=== PATIENT | male | born 1980 | race Caucasian/White ===

== ENCOUNTER 2020-03-22 05:56 | Emergency (ER) | payer BC, SELFPAY ==
[2020-03-22 06:00] VITALS: BP 196/99; PULSE 71; RESP 16; TEMP 37; O2SAT 97; BMI 33.5
--- NOTE | 2020-03-22 06:07 | DI.RAD.S_ITS ---
PROCEDURE: XR CHEST 1V INDICATIONS: Chest pain TECHNIQUE: One view of the chest was acquired. COMPARISON: None. FINDINGS: Surgical changes and devices: None. Lungs and pleura: Low lung volumes accentuate the interstitial markings. No focal consolidation. No pleural effusion or pneumothorax. Mediastinum: Mediastinal contours appear normal. Heart size is normal. Bones and chest wall: No suspicious bony lesions. Overlying soft tissues appear unremarkable. IMPRESSION: No acute cardiopulmonary process demonstrated radiographically. Low lung volumes. Dictated by: Ben Jung M.D. on 03/22/2020 at 7:46 Approved by: Ben Jung M.D. on 03/22/2020 at 7:47
[2020-03-22] MEDS: SODIUM CHLORIDE 0.9% 1,000 ML 1000 ML IV (06:26)
[2020-03-22] MEDS: KETOROLAC 60 MG/2 ML VIAL 15 MG IV (06:27)
[2020-03-22 06:28] VITALS: BP 150/80; PULSE 60; O2SAT 96
[2020-03-22 06:29] LABS: Add Manual Diff / Slide Review NO; Basophils Absolute Auto 100 /uL (0-100); Basophils Percent Auto 1.2 % (0-2); Eosinophils Absolute Auto 200 /uL (0-450); Eosinophils Percent Auto 2.5 % (2-4); Hematocrit 40.1 % (41-53); Lymphocytes Absolute Auto 2300 /uL (1100-4500); Lymphocytes Percent Auto 30.5 % (25-40); Mean Corpuscular HGB Conc 34.9 % (30-36); Mean Corpuscular Hemoglobin 30.2 PG (26-34); Mean Corpuscular Volume 86.6 fL (80-100); Monocytes Absolute Auto 700 /uL (0-900); Monocytes Percent Auto 8.9 % (3-14); Neutrophils Absolute Auto 4400 /uL (1500-7000); Neutrophils Percent Auto 56.9 % (50-75); Platelet Count 318 X10^3/uL (150-400); Red Blood Cell Count 4.63 X10^6/uL (4.5-5.9); Red Cell Distribution Width 13.2 % (11.6-14.8); White Blood Cell Count 7.7 X10^3/uL (4.5-11.0)
[2020-03-22 06:30] VITALS: BP 153/85; PULSE 54; O2SAT 97
[2020-03-22 06:34] LABS: Prothrombin Time 11.7 SECONDS (10.1-12.7)
--- NOTE | 2020-03-22 06:35 | ED_ITS ---
HPI - Chest Pain General Chief Complaint: Chest Pain Stated Complaint: Sharp pain on right side also pain in chest Time Seen by Provider: 03/22/20 06:01 Source: patient Mode of arrival: Ambulatory Limitations: no limitations History of Present Illness HPI narrative: 39-year-old male former smoker no significant medical history presents with a chief complaint of sharp stabbing right-sided chest pain with radiation to his back since 2:30 a.m.. He states it is worse with motion and with a deep breath. He denies associated symptoms such as dizziness, weakness or lightheadedness. He denies any cough or shortness of breath. He denies any injury or trauma. He denies any nausea, vomiting or diarrhea. He denies any history of the same. MD complaint: chest pain Onset (ago): hour(s) Duration: constant Onset: during rest Pain location: right chest Severity: moderate Quality: sharp Pain radiation: back Relieving factors: rest Exacerbating factors: inspiration Treatments prior to arrival chest pain: none Related Data Previous Rx's Medication Instructions Recorded ketorolac 10 mg PO Q6H PRN #20 tab 03/22/20 Allergies Allergy/AdvReac Type Severity Reaction Status Date / Time No Known Drug Allergies Allergy Verified 03/22/20 06:34 Review of Systems Constitutional Constitutional: Denies chills, Denies fatigue, Denies fever(s), Denies frequent falls, Denies lethargy and Denies weakness Eyes Eyes: Denies change in vision, Denies eye discharge, Denies irritation and Denies loss of vision ENT Ears, Nose, Mouth, and Throat: Denies change in voice, Denies dizziness, Denies neck pain, Denies sore throat and Denies throat swelling Cardiovascular Cardiovascular: Reports chest pain, Denies irregular heart rhythm, Denies lightheadedness, Denies palpitations, Denies dyspnea, Denies dyspnea on exertion and Denies orthopnea Respiratory Respiratory: Denies cough, Denies dyspnea, Denies dyspnea on exertion and Denies wheezing Gastrointestinal Gastrointestinal: Denies abdominal pain, Denies change in bowel habits, Denies diarrhea, Denies nausea and Denies vomiting Musculoskeletal Musculoskeletal: Denies neck pain and Denies numbness Integumentary/Breasts Skin/Breast: Denies pruritus, Denies erythema, Denies rash and Denies wounds Neurologic Neurologic: Denies behavioral changes, Denies confusion, Denies dizziness, Denies frequent falls, Denies loss of vision, Denies numbness and Denies weakness Psychiatric Psychiatric: Denies anxiety, Denies behavioral changes, Denies confusion, Denies depression, Denies homicidal ideation and Denies suicidal ideation Endocrine Endocrine: Denies fatigue, Denies flushing and Denies palpitations Hematologic/Lymphatic Hematologic/Lymphatic: Denies easy bruising Allergic/Immunologic Allergic/Immunologic: Denies urticaria, Denies throat swelling and Denies whee zing Patient History tobacco type: smokeless tobacco Substance Use Type: does not use Exam Narrative Exam Narrative: GENERAL: [39] year old patient appears stated age. Well- nourished, well-developed patient, in mild distress. Obviously in pain HEAD: Atraumatic. Normocephalic. EYES: Pupils equal round and reactive. Extraocular motions intact. No scleral icterus. No injection or drainage. ENT: Nose without bleeding, purulent drainage. Throat without erythema, tonsillar hypertrophy or exudate. Airway patent. NECK: Trachea midline. Non tender CARDIOVASCULAR: Regular rate and rhythm without murmurs, gallops, or rubs. RESPIRATORY: Clear to auscultation. Breath sounds equal bilaterally. No wheezes, rales, or rhonchi. GASTROINTESTINAL: Abdomen soft, tender in the right upper quadrant, nondistended. EXTREMITIES: No edema or joint tenderness. BACK: Nontender without deformity or crepitance. No flank tenderness. NEURO: AOx3. SKIN: No rash or erythema of visible areas Initial Vital Signs Initial Vital Signs: Vital Signs Temperature 98.6 F 03/22/20 06:00 Pulse Rate 71 03/22/20 06:00 Respiratory Rate 16 03/22/20 06:00 Blood Pressure 196/99 H 03/22/20 06:00 Pulse Oximetry 97 03/22/20 06:00 Course Orders Ordered: ED Orders 03/22/20 06:04 EKG-12 Lead Stat 03/22/20 06:07 XR chest 1V Stat 03/22/20 06:20 Complete Blood Count AUTO DIFF Stat Comprehensive Metabolic Panel Stat D Dimer Stat Lipase Stat NT-proBNP (BNP-Adult 18+) Stat Prothrombin Time INR Stat Troponin & CK Cardiac Panel Stat 03/22/20 06:52 US abdomen limited Stat Discontinued Medications Sodium Chloride (Normal Saline 0.9%) 1,000 mls @ 1,000 mls/hr IV BOLUS ONE Stop: 03/22/20 07:05 Last Admin: 03/22/20 06:26 Dose: 1,000 mls/hr Documented by: ROSALIA Ketorolac Tromethamine (Toradol) 15 mg IV NOW ONE Stop: 03/22/20 06:07 Last Admin: 03/22/20 06:27 Dose: 15 mg Documented by: ROSALIA Vital Signs Vital signs: Vital Signs - 8 hr 03/22/20 06:00 03/22/20 06:28 03/22/20 06:30 Temperature 98.6 F Pulse Rate 71 60 54 L Respiratory Rate 16 Blood Pressure 196/99 H 150/80 H 153/85 H Pulse Oximetry 97 96 97 03/22/20 07:00 Temperature Pulse Rate Respiratory Rate Blood Pressure 159/86 H Pulse Oximetry MDM - Chest Pain Lab Data Result diagrams: 03/22/20 06:20 03/22/20 06:20 Labs: Lab Results 03/22/20 03/22/20 03/22/20 Range/Units 06:20 06:20 06:20 WBC 7.7 (4.5-11.0) X10^3/uL RBC 4.63 (4.5-5.9) X10^6/uL Hgb 14.0 (13.5-17.5) g/dL Hct 40.1 L (41-53) % MCV 86.6 (80-100) fL MCH 30.2 (26-34) PG MCHC 34.9 (30-36) % RDW 13.2 (11.6-14.8) % Plt Count 318 (150-400) X10^3/uL Neut % (Auto) 56.9 (50-75) % Lymph % (Auto) 30.5 (25-40) % [place] % (Auto) 8.9 (3-14) % Eos % (Auto) 2.5 (2-4) % Baso % (Auto) 1.2 (0-2) % Neut # (Auto) 4400 (2601-1095) /uL Lymph # (Auto) 2300 (3878-4573) /uL [place] # (Auto) 700 (0-900) /uL Eos # (Auto) 200 (0-450) /uL Baso # (Auto) 100 (0-100) /uL PT 11.7 (10.1-12.7) SECONDS INR 1.0 (0.9-1.3) D-Dimer < 200 (<230) ng/mL Sodium (137-145) mmol/L Potassium (3.4-5.1) mmol/L Chloride (98-107) mmol/L Carbon Dioxide (22-32) mmol/L BUN (9-20) mg/dL Creatinine (0.66-1.25) mg/dL Estimated GFR (>60) mL/min BUN/Creatinine Ratio (6-22) Glucose (70-100) mg/dL Calcium (8.4-10.2) mg/dL Total Bilirubin (0.2-1.3) mg/dL AST (17-59) IU/L ALT (<50) IU/L Alkaline Phosphatase (38-126) U/L Total Creatine Kinase (55-170) U/L CK-MB (CK-2) CK-MB (CK-2) Rel Index Troponin I (0.01-0.034) ng/mL NT-Pro-B Natriuret Pep (<125) pg/mL Total Protein (6.3-8.2) g/dL Albumin (3.5-5.0) g/dL Globulin (1.7-4.1) g/dL Albumin/Globulin Ratio (1.0-2.8) Lipase (23-300) U/L 08/05/20 Range/Units 06:20 WBC (4.5-11.0) X10^3/uL RBC (4.5-5.9) X10^6/uL Hgb (13.5-17.5) g/dL Hct (41-53) % MCV (80-100) fL MCH (26-34) PG MCHC (30-36) % RDW (11.6-14.8) % Plt Count (150-400) X10^3/uL Neut % (Auto) (50-75) % Lymph % (Auto) (25-40) % [place] % (Auto) (3-14) % Eos % (Auto) (2-4) % Baso % (Auto) (0-2) % Neut # (Auto) (0743-7682) /uL Lymph # (Auto) (1505-6293) /uL [place] # (Auto) (0-900) /uL Eos # (Auto) (0-450) /uL Baso # (Auto) (0-100) /uL PT (10.1-12.7) SECONDS INR (0.9-1.3) D-Dimer (<230) ng/mL Sodium 139 (137-145) mmol/L Potassium 4.1 (3.4-5.1) mmol/L Chloride 105 (98-107) mmol/L Carbon Dioxide 24 (22-32) mmol/L BUN 21 H (9-20) mg/dL Creatinine 0.66 (0.66-1.25) mg/dL Estimated GFR > 60.0 (>60) mL/min BUN/Creatinine Ratio 31.8 H (6-22) Glucose 106 H (70-100) mg/dL Calcium 9.6 (8.4-10.2) mg/dL Total Bilirubin 0.6 (0.2-1.3) mg/dL AST 31 (17-59) IU/L ALT 44 (<50) IU/L Alkaline Phosphatase 87 (38-126) U/L Total Creatine Kinase 79 (55-170) U/L CK-MB (CK-2) TNP CK-MB (CK-2) Rel Index TNP Troponin I < 0.012 (0.01-0.034) ng/mL NT-Pro-B Natriuret Pep 40 (<125) pg/mL Total Protein 8.0 (6.3-8.2) g/dL Albumin 4.4 (3.5-5.0) g/dL Globulin 3.6 (1.7-4.1) g/dL Albumin/Globulin Ratio 1.2 (1.0-2.8) Lipase 32 (23-300) U/L Imaging Data Chest x-ray: Attestation: I personally reviewed and interpreted this imaging study as follows: My Impression: NAP ECG Data Attestation: I personally reviewed and interpreted this ECG as follows: Prior ECG tracings: not available for review Interpretation: EKG is normal sinus rhythm rate [65 ] and free of any signs of ischemia or ectopy. No ST segmental elevation or depression. No T wave inversions MDM Narrative Medical decision making narrative: Multiple causes of chest pain considered including MA, PE, pneumothorax, pneumonia, aortic dissection, and pleurisy. Patient reports no radiation, no diaphoresis, no provocation with exertion, and no vomiting. Pleurisy thought most likely given sharp and stabbing, reproducibility and near complete resolution with anti-inflammatories Patient's symptoms improved over duration of stay with above-stated therapies. Findings and discharge diagnosis discussed with patient/family followed by verbalization of understanding Return precautions discussed with patient/family whom verbalize understanding. Discharge Plan Departure Patient Disposition: Home Clinical Impression: Atypical chest pain Instructions: DI for Atypical Chest Pain Activity Restrictions/Additional Instructions: *You have been diagnosed with [pleuritic type chest pain. Your story, exam, EKG, labs, ultrasound and x-ray are very reassuring] *What to do: *Take medications as directed *Follow up with your primary care provider in 2-3 days, call for an appointment. Let them know you were seen in the Emergency Department and that we ask that you be seen in follow up *Return to ER if you should have any new, worsening or concerning symptoms Prescriptions: New ketorolac 10 mg tablet 10 mg PO Q6H PRN (Reason: pain) Qty: 20 RF: 0 Referrals: [facility] [Outside]
[2020-03-22 06:39] LABS: Alanine Aminotransferase 44 IU/L (<50); Albumin 4.4 g/dL (3.5-5.0); Albumin Globulin Ratio 1.2 (1.0-2.8); Alkaline Phosphatase 87 U/L (38-126); Aspartate Aminotransferase 31 IU/L (17-59); BUN Creatinine Ratio 31.8 (6-22); Bilirubin Total 0.6 mg/dL (0.2-1.3); Blood Urea Nitrogen 21 mg/dL (9-20); Calcium 9.6 mg/dL (8.4-10.2); Carbon Dioxide 24 mmol/L (22-32); Chloride 105 mmol/L (98-107); Creatine Kinase 79 U/L (55-170); Estimated Glomerular Filt Rate > 60.0 mL/min (>60); Globulin 3.6 g/dL (1.7-4.1); Glucose 106 mg/dL (70-100); HEMOLYSIS 32 (0-50); Lipase 32 U/L (23-300); Potassium 4.1 mmol/L (3.4-5.1); Sodium 139 mmol/L (137-145)
[2020-03-22 06:43] LABS: D Dimer < 200 ng/mL (<230)
[2020-03-22 06:51] LABS: NT-proBNP (BNP-Adult 18+) 40 pg/mL (<125); Troponin I < 0.012 ng/mL (0.01-0.034)
--- NOTE | 2020-03-22 06:52 | DI.US.S_ITS ---
PROCEDURE: US ABDOMEN LIMITED INDICATIONS: RUQ PAIN RADIATING TO BACK TECHNIQUE: Real-time focused scanning was performed of the abdomen, with image documentation. COMPARISON: None. FINDINGS: The liver is mildly enlarged with diffuse moderate hepatic steatosis. No intrahepatic biliary ductal dilatation. Normal caliber common duct. The gallbladder is normally distended with no sludge, stone, or wall thickening. No pericholecystic fluid. The administrative assistant coordinator reports a negative sonographic Walker's sign. Pancreas is not well visualized but appears grossly unremarkable. IMPRESSION: No findings of cholecystitis. Mild hepatomegaly with moderate hepatic steatosis. Dictated by: Ben Jung M.D. on 03/22/2020 at 7:48 Approved by: Ben Jung M.D. on 03/22/2020 at 7:49
[2020-03-22 07:00] VITALS: BP 159/86
[2020-03-22 07:27] VITALS: BP 159/86; PULSE 63; RESP 18; TEMP 36.8; O2SAT 96
== END 2020-03-22 07:28 | disposition home or self-care (01) ==
PROVIDERS: Emergency Provider Emergency Medicine
DX: R07.89 Other chest pain (principal)
CPT/HCPCS: 36415; 71045; 76705; 80053; 82550; 83690; 83880; 84484; 85025; 85379; 85610; 93005; 96374; 99284; J1885

== ENCOUNTER 2022-06-02 23:08 | Emergency (ER) | payer BC, SELFPAY ==
[2022-06-02 23:15] VITALS: BP 170/107; PULSE 80; RESP 20; TEMP 37.2; O2SAT 100; BMI 34.9
[2022-06-02 23:16] VITALS: BP 170/107
[2022-06-02 23:17] VITALS: PULSE 82; O2SAT 100
--- NOTE | 2022-06-02 23:24 | DI.RAD.S_ITS ---
PROCEDURE: XR KNEE LT 3V INDICATIONS: pain, swelling, possible injury TECHNIQUE: 3 views of the knee were acquired. COMPARISON: None. FINDINGS: Bones: No fractures or dislocations. No suspicious bony lesions. 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 Soft tissues: Soft tissue swelling along anterior aspect of patella and patella tendon is seen. No joint effusion. No suspicious soft tissue calcifications. IMPRESSION: No acute fracture or dislocation. Mild medial femoral tibial compartment osteoarthritis. No significant joint effusion. Anterior left knee soft tissue swelling. Dictated by: Miles Kebede M.D. on 06/03/2022 at 0:12 Approved by: Miles Kebede M.D. on 06/03/2022 at 0:13
--- NOTE | 2022-06-02 23:24 | ED.EXTPRO ---
HPI - Extremity Problem General Chief complaint: Extremity Injury, Lower Stated complaint: left knee pain Time Seen by Provider: 06/02/22 23:10 History of Present Illness HPI Narrative: 41-year-old male nonsmoker though he does chew tobacco with no chronic medical problems presents with a chief complaint of significant left anterior knee pain over the past few days. He states that the pain started after he had been kneeling down and hit his kneecap on a hard object a few days ago and since then he is developed some swelling over his kneecap and a bit of redness below. He denies that anything punctured his skin. He has increased pain with ambulating but is able to bend his knee to 90?. He denies any traumatic injury, he did not fall or twist it. He denies any calf pain or medial thigh pain, recent travel or history of blood clot. Related Data Previous Rx's Medication Instructions Recorded ketorolac 10 mg tablet 10 mg PO Q6H PRN pain #20 tabs 03/22/20 doxycycline hyclate 100 mg tablet 100 mg PO BID #20 tabs 06/02/22 hydrocodone 5 mg-acetaminophen 325 1 tab PO Q4-6H PRN pain #10 tabs 06/02/22 mg tablet Allergies Allergy/AdvReac Type Severity Reaction Status Date / Time No Known Drug Allergies Allergy Verified 03/22/20 06:34 Review of Systems Review of Systems Narrative: GENERAL: Denies chills, fatigue, malaise, fever, sweats. HEENT: Denies sinus pain, ear pain, sore throat, difficulty swallowing, dizziness. RESPIRATORY: Denies dyspnea, cough, wheezing, hemoptysis, sputum. CARDIOVASCULAR: Denies chest pain, palpitations, orthopnea, edema, GASTROINTESTINAL: Denies nausea, vomiting, abdominal pain, diarrhea, constipation, melena. : Denies dysuria, frequency, incontinence, hematuria, urinary retention. MUSCULOSKELETAL: See HPI SKIN: See HPI NEUROLOGIC: Denies weakness, headache, numbness, change in speech, confusion, seizures, incoordination. PSYCHIATRIC: No concerning psychosocial issues. 12 point review of systems is negative except for those stated above Patient History Social History Smoking Status: Former smoker tobacco type: smokeless tobacco Substance Use Type: does not use Exam Narrative Exam Narrative: GENERAL: [41] year old patient appears stated age. Well-developed patient, in mild distress. HEAD: Atraumatic. Normocephalic. EYES: Pupils equal round and reactive. Extraocular motions intact. No scleral icterus. No injection or drainage. ENT: Nose without bleeding, purulent drainage. Throat without erythema, tonsillar hypertrophy or exudate. Airway patent. NECK: Trachea midline. Non tender CARDIOVASCULAR: Regular rate and rhythm without murmurs, gallops, or rubs. RESPIRATORY: Clear to auscultation. Breath sounds equal bilaterally. No wheezes, rales, or rhonchi. GASTROINTESTINAL: Abdomen soft, non-tender, nondistended. EXTREMITIES: Minimal swelling over patella with tenderness to palpation, no induration, minimal fluctuance if any, no appreciable joint effusion, erythema or ligamentous laxity. There is some erythema along the anterior dover but no calf pain, negative Homans BACK: Nontender without deformity or crepitance. No flank tenderness. NEURO: AOx3. SKIN: No rash or erythema of visible areas Initial Vital Signs Initial Vital Signs: Vital Signs Temperature 98.9 F 06/02/22 23:15 Pulse Rate 80 06/02/22 23:15 Respiratory Rate 20 06/02/22 23:15 Blood Pressure 170/107 H 06/02/22 23:15 Pulse Oximetry 100 06/02/22 23:15 Oxygen Delivery Method 06/02/22 23:15 Course Orders Ordered: ED Orders 06/02/22 23:24 XR knee LT 3V Stat Discontinued Medications Hydrocodone Bitart/Acetaminophen (Hydrocodone/Acet 5/325 Prepack) 1 bottle MISC SEEINSTR ONE Stop: 06/02/22 23:25 Last Admin: 06/02/22 23:41 Dose: 1 bottle Documented By: ANNA Doxycycline Hyclate (Doxycycline Hyclate 100 Mg Tablet) 100 mg PO NOW ONE Stop: 06/02/22 23:25 Last Admin: 06/02/22 23:41 Dose: 100 mg Documented By: ANNA Vital Signs Vital signs: Vital Signs - 8 hr 06/02/22 23:15 06/02/22 23:16 06/02/22 23:17 Temperature 98.9 F Pulse Rate 80 82 Respiratory Rate 20 Blood Pressure 170/107 H 170/107 H Pulse Oximetry 100 100 Oxygen Delivery Method Room Air MDM - Extremity (Nontraumatic) Imaging Data Extremity x-ray #1: Radiologist's Impression: Close Knee X-Ray (Signed) Miles Kebede - 06/02/22 Launch?[address] [address] XRay Report Signed Patient: Ian Whitten MR#: [id number] : 1980 Acct:[id number] Age/Sex: 41 / M Date of Service: 06/02/22 Loc: ED Accession Number: [id number] ?? Procedure: XR knee LT 3V Ordering Provider: Craig Tuttle D.O. PROCEDURE:? XR KNEE LT 3V ? INDICATIONS:? pain, swelling, possible injury ? TECHNIQUE:? 3 views of the knee were acquired.? ? COMPARISON:? None. ? FINDINGS:? ? Bones:? No fractures or dislocations.? No suspicious bony lesions.? 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 ? Soft tissues:? Soft tissue swelling along anterior aspect of patella and patella tendon is seen.? No joint effusion.? No suspicious soft tissue calcifications.? ? ? IMPRESSION:? No acute fracture or dislocation.? Mild medial femoral tibial compartment osteoarthritis.? No significant joint effusion.? Anterior left knee soft tissue swelling. ? ? Dictated by: Miles Kebede M.D. on 06/03/2022 at 0:12 ? ? Approved by: Miles Kebede M.D. on 06/03/2022 at 0:13 ? MDM Narrative Medical decision making narrative: Patient with reassuring history and physical exam and lack of traumatic involvement. His history and physical would suggest against the likelihood of septic arthritis given the impressive range of motion. DVT considered but thought to be unlikely given lack of calf pain, negative Homans, no thigh pain. Most likely diagnosis bursitis with the possibility of an infectious process. Needle aspiration considered but there is minimal swelling, and findings are unlikely to change the plan. Discharge Plan Departure Patient Disposition: Home Clinical Impression: Bursitis of left knee, Cellulitis of left leg Instructions: DI for Cellulitis -- Adult, DI for Bursitis Activity Restrictions/Additional Instructions: *You have been diagnosed with [left knee bursitis with cellulitis.] *What to do: *Please continue to take your regular medications as directed. [x ] New medication prescriptions sent to your pharmacy: [[facility] ] [ ] New medication written as a paper prescription [ ] No new medications given *Please follow up with your primary care provider in 2-3 days, call for an appointment. Let them know you were seen in the Emergency Department and that we ask that you be seen in follow up. We will electronically transmit a record of today's note if your PCP is in our system *Return to Emergency Department if you should have any new, worsening or concerning symptoms Prescriptions: New hydrocodone-acetaminophen 5-325 mg tablet 1 tab PO Q4-6H PRN (Reason: pain) Qty: 10 0RF doxycycline hyclate 100 mg tablet 100 mg PO BID Qty: 20 0RF No Action ketorolac 10 mg tablet 10 mg PO Q6H PRN (Reason: pain) Qty: 20 0RF
[2022-06-02] MEDS: HYDROCODONE/ACET 5/325 PREPACK 1 BOTTLE MISC (23:41)
[2022-06-02] MEDS: DOXYCYCLINE HYCLATE 100 MG TABLET PO (23:41)
[2022-06-03 00:48] VITALS: BP 135/77; PULSE 68; RESP 14; O2SAT 98
== END 2022-06-03 00:48 | disposition home or self-care (01) ==
PROVIDERS: Emergency Provider Emergency Medicine
DX: M70.52 Other bursitis of knee, left knee (principal); L03.116 Cellulitis of left lower limb
CPT/HCPCS: 73562; 99283